=== PATIENT | male | born 1950 | race Caucasian/White ===

== ENCOUNTER 2023-11-17 09:00 | Emergency (ER) | payer MEDICARE, OTHER ==
[2023-11-17 10:33] LABS: BASOPHILS PERCENT AUTO 0.4 % (0.0-1.0); EOSINOPHILS ABSOLUTE AUTO 0.1 K/mm3 (0.0-0.4); EOSINOPHILS PERCENT AUTO 1.1 % (0.0-6.0); HEMATOCRIT 41.5 % (42.0-52.0); IMMATURE GRAN ABSOLUTE AUTO 0.01 K/mm3 (0.00-0.05); IMMATURE GRAN PERCENT AUTO 0.2 % (0.0-0.4); LYMPHOCYTES ABSOLUTE AUTO 1.1 K/mm3 (1.0-4.8); LYMPHOCYTES PERCENT AUTO 24.1 % (24.0-44.0); MEAN CORPUSCULAR HGB CONC 33.7 g/dl (32.0-36.0); MEAN PLATELET VOLUME 10.6 fl (9.4-12.4); MONOCYTES ABSOLUTE AUTO 0.4 K/mm3 (0.0-0.8); MONOCYTES PERCENT AUTO 7.8 % (0.0-8.0); NEUTROPHILS ABSOLUTE AUTO 3.2 K/mm3 (1.8-7.7); NEUTROPHILS PERCENT AUTO 66.4 % (41.0-71.0); PLATELET COUNT,PLT 231 K/mm3 (150-400); RED BLOOD CELL COUNT 4.51 M/mm3 (4.52-5.90); WHITE BLOOD CELL COUNT,WBC 4.74 K/mm3 (3.9-11.3)
[2023-11-17 10:51] LABS: INR 1.05; PROTHROMBIN TIME 11.1 SECONDS (9.7-12.0)
[2023-11-17 10:53] LABS: PTT,PARTIAL THROMBOPLSTIN TIME 27.6 SECONDS (21.7-31.4)
[2023-11-17 11:01] LABS: A/G RATIO 1.3 (1-2); ALANINE AMINOTRANSFERASE,ALT 21 U/L (16-63); ALBUMIN 3.7 g/dl (3.4-5.0); ALKALINE PHOSPHATASE 43 U/L (46-116); ASPARTATE AMNIOTRANSFERASE,AST 22 U/L (15-37); BILIRUBIN TOTAL 0.5 mg/dL (0.2-1.0); BLOOD UREA NITROGEN,BUN 18 mg/dL (7-18); BUN/CREATININE RATIO 22.5 (14-18); CALCIUM 8.5 mg/dL (8.5-10.1); CARBON DIOXIDE,CO2 28 mEq/L (21-32); CHLORIDE,CL 103 mEq/L (98-107); CREATININE 0.8 mg/dL (0.7-1.3); ESTIMATED GFR 94 mL/min (>60); GLUCOSE RANDOM 79 mg/dL (70-99); PROTEIN TOTAL,TP 6.6 g/dl (6.4-8.2); SODIUM,NA 139 mEq/L (136-145)
[2023-11-17 11:12] LABS: TROPONIN I HIGH SENSITIVITY < 4 pg/mL (<=76)
[2023-11-17] MEDS: Sodium Chloride 0.9% 10 ML Syringe FLUSH PRN ×2 (12:03→12:04)
[2023-11-17] MEDS: Sodium Chloride 0.9% 500 ML IV SCH (12:03)
[2023-11-17] MEDS: Gadobenate Dimeglumine 529 MG/ML 20 ML SDV IVPUSH ONE (12:06)
[2023-11-17] MEDS: Sodium Chloride 0.9% 50 ML SDV IV PRN (12:07)
[2023-11-17] MEDS ORDERED: Sodium Chloride 0.9% 500 ML IV ONE (13:23)
[2023-11-17] MEDS: Meclizine 12.5 MG Tab PO ONE (14:09)
[2023-11-17] MEDS: Ketorolac 15 MG/ML SDV IVPUSH ONE (14:12)
== END 2023-11-17 15:10 | disposition home or self-care (01) ==
LOC: JD.ED 09:00
DX: R42 Dizziness and giddiness (principal); E78.00 Pure hypercholesterolemia, unspecified; Z79.82 Long term (current) use of aspirin; Z79.899 Other long term (current) drug therapy
CPT/HCPCS: 36415; 70450; 70549; 70553; 80053; 84484; 85025; 85610; 85730; 93005; 99284; A9270; A9577; J3490; J7040; 93010